=== PATIENT | male | born 1980 | race Caucasian/White ===

== ENCOUNTER 2016-08-25 20:54 | Emergency (ER) | payer BC ==
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
== END 2016-08-25 21:48 | disposition home or self-care (01) ==
LOC: ER 20:54
DX: S01.312A Laceration without foreign body of left ear, initial encounter (principal); Z23 Encounter for immunization; W18.30XA Fall on same level, unspecified, initial encounter